=== PATIENT | female | born 1970 | race Two or more races ===

== ENCOUNTER 2021-09-16 12:56 | Outpatient (CLI) | payer OTHER | END 2021-09-16 13:01 | disposition home or self-care (01) | LOC: NUCLEAR 12:56 | PROVIDERS: ATTEND Internal Medicine Sports Medicine | DX: E05.90 Thyrotoxicosis, unspecified without thyrotoxic crisis or storm (principal); E04.1 Nontoxic single thyroid nodule; E04.9 Nontoxic goiter, unspecified | CPT/HCPCS: 79005; A9517 ==